=== PATIENT | male | born 1950 | race Hispanic/Latino ===

== ENCOUNTER 2023-06-21 16:15 | Inpatient (IN) | payer OTHER, MEDICARE ==
[~2023-06-21 16:15] MED LIST: Iopamidol 370 76% 100 ML VIAL ONE
[2023-06-21] MEDS ORDERED: Aspirin Chewable 81 MG TAB ONE (16:43)
[2023-06-21 17:02] LABS: #Monocytes 0.8 10x3/uL (0.0-1.1); #Neutrophils 7.9 10x3/uL (1.5-8.4); %Basophils 0.3 % (0.0-2.0); %Eosinophils 0.3 % (0.0-6.0); %Lymphocytes 12.6 % (18.0-47.0); %Monocytes 7.7 % (0.0-10.0); %Neutrophils 78.9 % (40.0-75.0); Hematocrit 43.7 % (38.8-50.0); Hemoglobin 14.1 g/dL (13.5-17.5); Mean Corpuscular HGB CONC 32.3 g/dL (32.0-36.0); Mean Corpuscular Hemoglobin 27.3 pg (27.0-33.0); Mean Corpuscular Volume 84.5 fl (81.2-95.1); Mean Platelet Volume 9.3 fl (7.4-10.4); Platelet Count 624 10x3/uL (150-450); RBC Distribution Width 14.6 % (11.5-14.5); Red Blood Cell (RBC) Count 5.17 10x6/uL (4.32-5.72)
[2023-06-21 17:28] LABS: ALT (SGPT) 11 U/L (8-55); AST (SGOT) 18 U/L (5-34); Albumin 3.1 g/dL (3.4-4.8); Alkaline Phosphatase 91 U/L (40-110); Anion Gap 20 mmol/L (10-20); BUN (Urea Nitrogen) 16 mg/dL (8.4-25.7); Bilirubin, Total 0.5 mg/dL (0.2-1.2); Calc. Creatinine Clearance 0 mL/min (70-130); Calcium 8.7 mg/dL (7.8-10.44); Carbon Dioxide 21 mmol/L (23-31); Chloride 102 mmol/L (98-107); Estimated GFR 92; Globulin 3.4 g/dL (2.4-3.5); Glucose 206 mg/dL (83-110); Lipase 39 U/L (8-78); Magnesium 1.5 mg/dL (1.6-2.6); Potassium 4.7 mmol/L (3.5-5.1); Protein, Total 6.5 g/dL (5.8-8.1); Sodium 138 mmol/L (136-145)
[2023-06-21 17:33] LABS: Troponin I Less than 0.010 ng/mL (< 0.028)
[2023-06-21] MEDS ORDERED: Furosemide 40 MG/4 ML VIAL ONE (18:56)
[2023-06-21] MEDS ORDERED: Dextrose 5% in Water 1,000 ML IV PRN (19:19)
[2023-06-21] MEDS ORDERED: Acetaminophen 325 MG TAB PO PRN (19:19)
[2023-06-21] MEDS ORDERED: Guaifenesin DM 100-10/5 ML UDCUP PO PRN (19:19)
[2023-06-21] MEDS ORDERED: Dextrose 50% Abboject 50 ML SYRINGE SLOW IVP PRN (19:19)
[2023-06-21] MEDS ORDERED: Glucagon 1 MG/ML KIT IM PRN (19:19)
[2023-06-21] MEDS ORDERED: Ondansetron PF 4 MG/2 ML Vial IVP PRN (19:19)
[2023-06-21] MEDS ORDERED: Senokot S 8.6-50 MG TAB PO PRN (19:19)
[2023-06-21] MEDS ORDERED: Calcium Carbonate 500 MG ChewTAB PO PRN (19:19)
[2023-06-21] MEDS: Clopidogrel Bisulfate 75 MG TAB PO SCH (20:41)
[2023-06-21] MEDS: Famotidine 20 MG TAB PO SCH (20:41)
[2023-06-21] MEDS: Rosuvastatin 20 MG TAB PO SCH (20:41)
[2023-06-21 20:45] VITALS: BMI 33.2
[2023-06-22 04:42] LABS: Anion Gap 17 mmol/L (10-20); BUN (Urea Nitrogen) 13 mg/dL (8.4-25.7); Calc. Creatinine Clearance 121 mL/min (70-130); Calcium 8.3 mg/dL (7.8-10.44); Carbon Dioxide 23 mmol/L (23-31); Cardiac Risk 3.8 (Less than 4.5); Chloride 102 mmol/L (98-107); Cholesterol 106 mg/dl (< 200 Desired); Estimated GFR 96; Glucose 108 mg/dL (83-110); HDL Cholesterol 28 mg/dL (>60 Neg Risk); LDL Cholesterol, Calculated 59 mg/dL; Magnesium 1.4 mg/dL (1.6-2.6); Potassium 3.7 mmol/L (3.5-5.1); Sodium 138 mmol/L (136-145); Triglycerides 93 mg/dL (Less than 150)
[2023-06-22] MEDS ORDERED: Magnesium 2 GM/50 ML(in water) 2 GM in Premix 1 BAG IVPB SCH (06:30)
[2023-06-22] MEDS: Multivitamin W/ Minerals 1 TAB PO SCH (09:54)
[2023-06-22] MEDS: Famotidine 20 MG TAB PO SCH ×2 (09:54→20:08)
[2023-06-22] MEDS: Aspirin 81 mg Enteric Coated Tablet PO SCH (09:54)
[2023-06-22] MEDS: HumaLOG 300 UNITS/3 ML VIAL SC PRN (12:50)
[2023-06-22 13:24] LABS: Hemoglobin A1c 6.7 % (4.0-6.0)
[2023-06-22 15:14] LABS: Magnesium 1.7 mg/dL (1.6-2.6)
[2023-06-22] MEDS: Clopidogrel Bisulfate 75 MG TAB PO SCH (20:08)
[2023-06-22] MEDS: Rosuvastatin 20 MG TAB PO SCH (20:08)
[2023-06-23 05:07] LABS: #Eosinphils 0.1 10x3/uL (0.0-0.5); #Monocytes 0.9 10x3/uL (0.0-1.1); #Neutrophils 7.6 10x3/uL (1.5-8.4); %Basophils 0.4 % (0.0-2.0); %Eosinophils 0.9 % (0.0-6.0); %Lymphocytes 11.8 % (18.0-47.0); %Monocytes 9.1 % (0.0-10.0); %Neutrophils 77.6 % (40.0-75.0); Hematocrit 43.8 % (38.8-50.0); Hemoglobin 14.4 g/dL (13.5-17.5); Mean Corpuscular HGB CONC 32.9 g/dL (32.0-36.0); Mean Corpuscular Volume 85.2 fl (81.2-95.1); Mean Platelet Volume 9.5 fl (7.4-10.4); Platelet Count 601 10x3/uL (150-450); RBC Distribution Width 14.4 % (11.5-14.5); Red Blood Cell (RBC) Count 5.14 10x6/uL (4.32-5.72); White Blood Cell (WBC) Count 9.8 10x3/uL (3.5-10.5)
[2023-06-23 05:09] LABS: Anion Gap 14 mmol/L (10-20); BUN (Urea Nitrogen) 13 mg/dL (8.4-25.7); Calc. Creatinine Clearance 123 mL/min (70-130); Calcium 8.5 mg/dL (7.8-10.44); Carbon Dioxide 25 mmol/L (23-31); Chloride 101 mmol/L (98-107); Estimated GFR 96; Glucose 118 mg/dL (83-110); Potassium 4.4 mmol/L (3.5-5.1); Sodium 136 mmol/L (136-145)
[2023-06-23 05:10] LABS: Troponin I Less than 0.010 ng/mL (< 0.028)
[2023-06-23] MEDS: Aspirin 81 mg Enteric Coated Tablet PO SCH (09:12)
[2023-06-23] MEDS: Multivitamin W/ Minerals 1 TAB PO SCH (09:12)
[2023-06-23] MEDS: Famotidine 20 MG TAB PO SCH (09:13)
[2023-06-23] MEDS: HumaLOG 300 UNITS/3 ML VIAL SC PRN (12:03)
[2023-06-23 12:29] VITALS: BP 115/65; TEMP 98
== END 2023-06-23 12:24 | disposition home or self-care (01) | DRG 66 ==
LOC: CSHERS 16:15 → INTOOBSV 19:12 → OBSVTOIN 19:12 → CSHTELE 19:12 → OBSVTOIN 06-22 13:11
PROVIDERS: ADMIT Student in an Organized Health Care Education/Training Program; ATTEND Physician Assistant Medical
DX: I63.40 Cerebral infarction due to embolism of unspecified cerebral artery (principal); I10 Essential (primary) hypertension; E78.5 Hyperlipidemia, unspecified; F10.10 Alcohol abuse, uncomplicated; R79.89 Other specified abnormal findings of blood chemistry; I48.0 Paroxysmal atrial fibrillation; G83.21 Monoplegia of upper limb affecting right dominant side; R47.01 Aphasia; E11.9 Type 2 diabetes mellitus without complications; E83.41 Hypermagnesemia; Z79.84 Long term (current) use of oral hypoglycemic drugs; Z98.890 Other specified postprocedural states; Z87.891 Personal history of nicotine dependence
CPT/HCPCS: 0042T; 36415; 36416; 70450; 70551; 71045; 80048; 80053; 80061; 83036; 83690; 83735; 83880; 84443; 84484; 85025; 93005; 93306; 93880; 96372; 96374; 96375; G0378; J1650; J1815; J1940; J3475